=== PATIENT | female | born 1970 | race Hispanic/Latino ===

== ENCOUNTER → 2021-12-23 | Outpatient (CLI) | payer BC | END | disposition home or self-care (01) | LOC: RAH 13:02 | PROVIDERS: ATTEND Internal Medicine | DX: Z12.31 Encounter for screening mammogram for malignant neoplasm of breast (principal) | CPT/HCPCS: 77067 ==

== ENCOUNTER → 2022-12-15 | Outpatient (CLI) | payer BC | END | disposition home or self-care (01) | LOC: RAH 10:11 | PROVIDERS: ATTEND Family Medicine | DX: Z12.31 Encounter for screening mammogram for malignant neoplasm of breast (principal) | CPT/HCPCS: 77067 ==